=== PATIENT | female | born 1935 | race Asian ===

== ENCOUNTER 2022-06-18 14:57 | Inpatient (IN) | payer MEDICARE, BC, MEDICAID ==
[~2022-06-18] VITALS: Ht 152.4 cm; Wt 44.5 kg
--- NOTE | 2022-06-18 15:00 | NUR ---
RECEIVED PT 87 YRS FEMALE CAME BY [facility] AND TRANSFER FROM SNF FOR LOW O2 ANS ALOC OPEN EYES AND FALLOW COMMAND
--- NOTE | 2022-06-18 15:10 | NUR ---
SEEN BY DR. CAMARA
--- NOTE | 2022-06-18 16:07 | NUR ---
INSERTED ANGO CATHETER RT LEG G20 OK BY DR MCKNIGHT TO INSERTED in leg
--- NOTE | 2022-06-18 16:10 | NUR ---
pt head stick inserted ango catheter g 20 on rt for arm blood drow and sent to lab
[2022-06-18 16:53] LABS: BASOPHILS % (AUTO) 0.3 % (0.0-2.0); EOSINOPHILS % (AUTO) 0.2 % (0.0-6.0); HEMATOCRIT 30 % (33-45); HEMOGLOBIN 9.9 g/dL (11.5-14.8); LYMPHOCYTES # (AUTO) 0.5 K/uL (0.8-4.8); LYMPHOCYTES % (AUTO) 5.5 % (20.0-44.0); MEAN CORPUSCULAR HGB CONC 34 g/dl (31.0-36.0); MEAN CORPUSCULAR VOLUME 89 fL (82-100); MONOCYTES # (AUTO) 0.9 K/uL (0.1-1.30); MONOCYTES % (AUTO) 9.3 % (2.0-12.0); NEUTROPHILS # (AUTO) 7.8 K/uL (1.8-8.9); NEUTROPHILS % (AUTO) 84.7 % (43.0-81.0); PLATELET COUNT (AUTO) 222 K/uL (150-450); RED BLOOD CELL COUNT(AUTO) 3.31 MIL/uL (4.0-5.2); WHITE BLOOD COUNT (AUTO) 9.2 K/uL (4.3-11.0)
[2022-06-18 16:56] LABS: CALCIUM, SERUM 8.8 mg/dL (8.5-10.1); CARBON DIOXIDE 22 mmol/L (21-32); CHLORIDE 106 mmol/L (98-107); CREATININE 1.5 mg/dL (0.6-1.3); POTASSIUM 4.3 mmol/L (3.5-5.1); SODIUM SERUM 137 mmol/L (136-145); UREA NITROGEN, BLOOD 34 mg/dL (7-18)
[2022-06-18 17:01] LABS: ALANINE AMINOTRANSFERASE 14 U/L (12-78); ALKALINE PHOSPHATASE 128 U/L (46-116); ASPARTATE AMINOTRANSFERASE 21 U/L (15-37); BILIRUBIN,DIRECT 0.2 mg/dL (0.0-0.2); BILIRUBIN,TOTAL 0.4 mg/dL (0.2-1.0); TOTAL PROTEIN, SERUM 6.7 g/dL (6.4-8.2)
[2022-06-18 17:03] LABS: GLUCOSE 363 mg/dL (74-106)
[2022-06-18] MEDS ORDERED: MAGN400T26 PO (17:04)
[2022-06-18] MEDS ORDERED: MAGN400O6 PO (17:04)
[2022-06-18] MEDS ORDERED: LISI40TA13 PO (17:04)
[2022-06-18] MEDS ORDERED: IPRA3AMP23 IH (17:04)
[2022-06-18] MEDS ORDERED: AMLO-212 PO (17:04)
[2022-06-18] MEDS ORDERED: MEGE400O6 PO (17:04)
[2022-06-18] MEDS ORDERED: CHOL100043 PO (17:04)
[2022-06-18] MEDS ORDERED: MELA3TAB41 PO (17:04)
[2022-06-18] MEDS ORDERED: CYAN-51 PO (17:04)
[2022-06-18] MEDS ORDERED: DIPH30CR2 TP (17:04)
[2022-06-18] MEDS ORDERED: DONE10TA44 PO (17:04)
[2022-06-18] MEDS ORDERED: ACET-868 PO ×2 (17:04)
[2022-06-18] MEDS ORDERED: LORA10TA7 PO (17:04)
[2022-06-18] MEDS ORDERED: CRAN425C6 PO (17:04)
[2022-06-18] MEDS ORDERED: GUAI100S11 PO (17:04)
[2022-06-18] MEDS ORDERED: GEMF600T90 PO (17:04)
[2022-06-18] MEDS ORDERED: ASCO-352 PO (17:04)
[2022-06-18] MEDS ORDERED: MULT-447 PO (17:04)
[2022-06-18] MEDS ORDERED: ASPI-1420 PO (17:04)
[2022-06-18] MEDS ORDERED: AMIN30LI2 PO (17:04)
[2022-06-18] MEDS ORDERED: FERR300L PO (17:04)
--- NOTE | 2022-06-18 17:25 | NUR ---
Queenie BRYAN SENT TO LAB
--- NOTE | 2022-06-18 18:00 | NUR ---
I&O CATHETER DONE FR 15 UA SENT TO LAB
--- NOTE | 2022-06-18 18:45 | NUR ---
ROOM 327-1 AFTER SHIFT CHANGE
[2022-06-18 18:57] LABS: BILIRUBIN,URINE NEGATIVE (NEGATIVE); COLOR,URINE YELLOW (YELLOW); LEUKOCYTE ESTERASE ,URINE NEGATIVE (NEGATIVE); NITRITE, URINE NEGATIVE (NEGATIVE); PROTEIN,URINE 3+ mg/dl (NEGATIVE); UGLUCOSE 2+ mg/dL (NEGATIVE); UROBILINOGEN,URINE 0.2 EU/dL (0.2)
[2022-06-18 19:03] LABS: BACTERIA,URINE RARE /HPF (None Seen); COARSE GRANULAR CASTS,URINE Few /LPF (None Seen); RBC,URINE 21-50 /HPF (0-2); URINE AMORPHOUS URATE Many /HPF (None Seen); WBC,URINE 0-2 /HPF (0-3)
[2022-06-18] MEDS ORDERED: ACETAMINOPHEN 325 MG TABLET PO PRN ×2 (19:30)
[2022-06-18] MEDS ORDERED: MAG HYDROX/AL HYDROX/SIMETH 30 ML UDC PO PRN (19:30)
[2022-06-18] MEDS ORDERED: MAGNESIUM HYDROXIDE 30 ML UDC PO PRN ×2 (19:30)
[2022-06-18] MEDS ORDERED: GUAIFENESIN 300 MG/15 ML UDC PO PRN (19:30)
[2022-06-18] MEDS ORDERED: ONDANSETRON HCL/PF 4 MG/2 ML VIAL IVP PRN (19:30)
[2022-06-18] MEDS ORDERED: DEXTROSE 50%-WATER 50 ML DISP.SYRIN IV PRN (19:30)
[2022-06-18] MEDS ORDERED: Z GUARD REMEDY 4 OZ OINT TP PRN (19:30)
[2022-06-18] MEDS ORDERED: IV NS 0.9% 1,000 ML IV PRN (19:30)
--- NOTE | 2022-06-18 20:16 | NUR ---
REPORT GIVEN TO PATRICIA REHMAN
--- NOTE | 2022-06-18 21:00 | NUR ---
PT BROUGHT UP TO UNIT ON GURNEY WITH EMT AND RN AT BEDSIDE W/ ACLS PROTOCOL. NAD NOTED URING TRANSPORT.
--- NOTE | 2022-06-18 21:20 | NUR ---
ADMISSION 87 female Patient Alert to self only, nonverbal, moans. Skin check done with severe body rash, wheals/hives noted. Patient scratching skin. Skin photos placed in the chart. Patient breathing with inspiratory crackles, appears congested. Will inform MD. IV right foot inserted in ER. Fall/skin precaution maintained.
[2022-06-18 21:47] VITALS: BP 139/76
[2022-06-18] MEDS: BLOOD SUGAR DIAGNOSTIC 1 EACH STRIP VI SCH (23:13)
[2022-06-18] MEDS: diphenhydrAMINE HCL 50 MG/ML VIAL IV SCH (23:29)
[2022-06-18] MEDS ORDERED: methylPREDNISolone SOD SUCC 40 MG/ML VIAL IV ONE (23:30)
[2022-06-18] MEDS ORDERED: FAMOTIDINE/PF INJ 20 MG/2 ML VIAL IV SCH (23:30)
[2022-06-18] MEDS: *INSULIN REGULAR(HUMULIN R)HUM 100 UNIT/ML VIAL SQ PRN (23:46)
--- NOTE | 2022-06-18 23:50 | NUR ---
SEVERE RASH TREATMENT Given Benadyl IV and Solu-medrol IV x1. Bld glucose 144mg/dl, patient not eating and nonverbal at this time, confused. Insulin not given. Patient on IVF NS continuous.
[2022-06-18 23:59] VITALS: BP 106/94
[2022-06-19] MEDS ORDERED: ALBUTEROL FS 2.5 MG/0.5 ML VIAL.NEB NEB PRN
[2022-06-19] MEDS ORDERED: IPRATROPIUM NEB FS 0.5 MG/2.5 ML AMPUL.NEB NEB PRN
--- NOTE | 2022-06-19 00:05 | NUR ---
CONGESTION Oxygen sat high 90's on 2L NC, breathing with congestion, crackles heard. Notified Dr. Jimenez with new orders placed. ABG, Breathing Tx, Cefepime Pharmacy to dose, Scopolamine patch. Informed RT. Will cont to monitor patient.
--- NOTE | 2022-06-19 00:33 | NUR ---
ABG No new orders for ABG result per Dr. Jimenez. Per to give one time IV Lasix.
[2022-06-19] MEDS ORDERED: SCOPOLAMINE PATCH 1 MG/72HR TD ONE (00:44)
[2022-06-19] MEDS ORDERED: CEFEPIME 1 GM VIAL ONE (00:46)
[2022-06-19] MEDS: SCOPOLAMINE PATCH 1 MG/72HR TD SCH (00:57)
[2022-06-19] MEDS ORDERED: FUROSEMIDE 40 MG/4 ML VIAL IV ONE (01:00)
[2022-06-19] MEDS ORDERED: CEFEPIME 1 GM in IV D5W 50 ML IV ONE (01:00)
[2022-06-19 04:09] VITALS: BP 146/81
[2022-06-19] MEDS: BLOOD SUGAR DIAGNOSTIC 1 EACH STRIP VI SCH ×4 (06:28→21:57)
[2022-06-19] MEDS: INSULIN REGULAR, HUMAN 100 UNIT/ML 3 ML VIAL SQ PRN ×2 (06:28→17:33)
[2022-06-19 06:40] LABS: BASOPHILS % (AUTO) 0.1 % (0.0-2.0); HEMATOCRIT 27 % (33-45); HEMOGLOBIN 8.9 g/dL (11.5-14.8); LYMPHOCYTES # (AUTO) 0.3 K/uL (0.8-4.8); LYMPHOCYTES % (AUTO) 4.9 % (20.0-44.0); MEAN CORPUSCULAR HGB CONC 33 g/dl (31.0-36.0); MEAN CORPUSCULAR VOLUME 90 fL (82-100); MONOCYTES # (AUTO) 0.2 K/uL (0.1-1.30); MONOCYTES % (AUTO) 2.3 % (2.0-12.0); NEUTROPHILS # (AUTO) 6.2 K/uL (1.8-8.9); NEUTROPHILS % (AUTO) 92.7 % (43.0-81.0); PLATELET COUNT (AUTO) 173 K/uL (150-450); RED BLOOD CELL COUNT(AUTO) 2.99 MIL/uL (4.0-5.2); WHITE BLOOD COUNT (AUTO) 6.7 K/uL (4.3-11.0)
[2022-06-19] MEDS: diphenhydrAMINE HCL 50 MG/ML VIAL IV SCH ×3 (06:56→20:56)
[2022-06-19 07:06] LABS: CALCIUM, SERUM 8.7 mg/dL (8.5-10.1); CREATININE 1.3 mg/dL (0.6-1.3); MAGNESIUM 2.3 mg/dL (1.8-2.4); PHOSPHORUS 3.7 mg/dL (2.5-4.9); POTASSIUM 4.2 mmol/L (3.5-5.1)
--- NOTE | 2022-06-19 07:30 | NUR ---
MS RN OPENING NOTES RECEIVED PATIENT ON BED, RESTING AND A/O X1. ON O2 AT 2LPM VIA NASAL CANNULA TOLERATING WELL WITH 97% O2 SAT. IN OF SIGNS OF PAIN PER FLACC LEVEL OF PAIN. WITH IV ACCESS AT THE LEFT HAND G24 WITH NS AT 75ML/HR INFUSING WELL. DR. HAUSER IS AWARE ABOUT THE PENDING CODE STATUS OF THE PATIENT. SAFETY MEASURES IN PLACED. CALL LIGHT WITHIN REACH. BED ON LOWEST LOCKED POSITION, SIDE RAILS UP X2. WILL CONTINUE TO MONITOR.
--- NOTE | 2022-06-19 07:31 | NUR ---
WOUND CARE CONSULT: PT PRESENTS WITH INTACT DEEP TISSUE INJURY WITH SCARRING TO SACRUM, PRESENT ON ADMISSION. PT NOTED TO BE CACHECTIC. RECOMMENDATIONS MADE FOR SKIN PROTECTION. DISCUSSED WITH NURSING STAFF. PER NIGHT NURSE REPORT, PT PREVIOUSLY HAD HIVES/WHEALS ON SKIN AND WAS GIVEN ANTIHISTAMINE ORDERED BY PMD. CONTEH IN AGREEMENT WITH PLAN OF CARE. Addendum: 06/19/22 at 0734 by ARISTEO FU WNDNU LEFT HIP SCAR NOTED ALSO.
--- NOTE | 2022-06-19 07:42 | NUR ---
END OF SHIFT REPORT Patient in bed, nonverbal. Oxygen sat high 90's in 2L NC. Rash/wheals/hives clearing after solu-medrol IV, on IV Benadryl. Breathing, congestion, slowly improving after IV lasix given. On neb treatment q6h. Started on IV abx. Afebrile. IVF continuous. Had BM during the night, incontinent care done. Turned and repositioned q2h. Off load heels at all times. Coccyx redness, Consult wound care placed. Patient code status pending. Fall/skin precaution maintained. Care endorsed to ORI Chandler.
[2022-06-19] MEDS: ALBUTEROL FS 2.5 MG/0.5 ML VIAL.NEB NEB SCH ×3 (07:44→20:05)
[2022-06-19] MEDS: IPRATROPIUM NEB FS 0.5 MG/2.5 ML AMPUL.NEB NEB SCH ×3 (07:44→20:05)
[2022-06-19 08:00] VITALS: BP 90/54
--- NOTE | 2022-06-19 08:10 | NUR ---
RN NOTE CALLED DAUGHTER TWILA SALAZAR AND SHE CONFIRMED THAT PATIENT IS DNR/DNI.
[2022-06-19] MEDS: MEGESTROL ACETATE SUSP 400 MG/10 ML UDC PO SCH (09:00)
[2022-06-19] MEDS: GEMFIBROZIL 600 MG TABLET PO SCH ×2 (09:00→17:04)
[2022-06-19] MEDS: ASPIRIN EC 81 MG TABLET.DR PO SCH (09:00)
[2022-06-19] MEDS: FERROUS SULFATE UDC 300 MG/5 ML UDC PO SCH (09:00)
[2022-06-19] MEDS: DONEPEZIL 5 MG TABLET PO SCH ×2 (09:00→17:04)
[2022-06-19] MEDS: LISINOPRIL (20MG) 20 MG TABLET PO SCH (09:00)
[2022-06-19] MEDS: LORATADINE 10 MG TABLET PO SCH (09:00)
[2022-06-19] MEDS: PROSOURCE / PROSTAT (PYXIS) 30 ML UDC GT SCH ×3 (09:00→17:03)
[2022-06-19] MEDS: AMLODIPINE BESYLATE 5 MG TABLET PO SCH (09:00)
[2022-06-19] MEDS: methylPREDNISolone SOD SUCC 125 MG/2ML VIAL IV SCH ×2 (10:18→17:28)
[2022-06-19] MEDS: CEFEPIME 2 GM in IV D5W 100 ML IV SCH (13:43)
[2022-06-19] MEDS: GUAIFENESIN LA 600 MG TABLET.SA PO SCH ×2 (14:51→20:42)
[2022-06-19 16:00] VITALS: BP 91/50
[2022-06-19] MEDS: MUPIROCIN OINT 2% 22 GM TUBE NS SCH (17:03)
[2022-06-19] MEDS: GLUCERNA SHAKE 237 ML CAN PO SCH (17:34)
--- NOTE | 2022-06-19 18:52 | NUR ---
SACK LIFTER CLOSING NOTES PATIENT AAOX1. NO FACIAL GRIMMECING NOTED. NO S/S OF PAIN OR DISCOMFORT. ON 2LPM VIA NC. NO SOB. NO DYSPNEA NOTED. ABLE TO TOLERATE CURRENT DIET WITH NO ASPIRATION NOTED. SPOON FED BY NURSE. HOB KEPT ELEVATED. ON IV MEDS VIA LEFT HAND 24 G. NO INFILTRATION NOTED. PATENT AND INTACT. ABD SOFT NON DISTENED, + BOWEL SOUNDS IN ALL 4 QUADRANTS. NO BM NOTED IN THIS SHFIT. ON PUREWICK VOIDING TO 200ML OF CLEAR YELLOW URINE. PATIENT REQUIRES TOTAL WITH ADL. TURNED AND REPOSITIONED FOR COMFORT AND GOOD CIRCULATION. SIDE RAILS UP X 3, BED LOCKED IN LOWEST POSITION, BED ALARM ON. WILL ENDORSED TO MINNA REHMAN FOR CONTINUITY OF CARE
--- NOTE | 2022-06-19 19:48 | NUR ---
MS AIR TRAFFIC COORDINATOR INITIAL NOTES Received report from am nurse and seen patient in bed resting with eyes closed but arousable to touch. Not in any acute distress noted. she's with o2 at 2 liters via nasal canula . Breathing even and non-labored. Skin warm to touch. Heplock on her left hand gauge 24 , patent and intact. kept her in semi fowlers position with side rails x2 up and bed in low and lock in position . Bed alarm set for safety. kept her warm and comfortable at all times. will continue monitoring.
[2022-06-19 20:00] VITALS: BP 156/66
[2022-06-19] MEDS: FAMOTIDINE (20 MG) 20 MG TABLET PO SCH (20:42)
--- NOTE | 2022-06-19 21:01 | NUR ---
noc rn note Patient given scheduled 2100 Diphenhydramine 25mg. Primary, Mary aware.
[2022-06-19] MEDS: *INSULIN REGULAR(HUMULIN R)HUM 100 UNIT/ML VIAL SQ PRN (22:02)
--- NOTE | 2022-06-19 22:02 | NUR ---
MS CYCLE MANAGER NOTES BLOOD SUGAR CHECKED DONE 144, 2 UNITS OF INSULIN GIVEN SARAI SQ ORDERED, NO SIGNS OF HYPER /HYPO GLYCEMIA NOTED. SNACKS ALSO SERVED. WILL CONTINUE MONITORING.
[2022-06-20] MEDS: ALBUTEROL FS 2.5 MG/0.5 ML VIAL.NEB NEB SCH ×4 (01:34→21:02)
[2022-06-20] MEDS: IPRATROPIUM NEB FS 0.5 MG/2.5 ML AMPUL.NEB NEB SCH ×4 (01:34→21:02)
[2022-06-20] MEDS: methylPREDNISolone SOD SUCC 125 MG/2ML VIAL IV SCH ×3 (02:30→16:15)
[2022-06-20 04:00] VITALS: BP 117/62
[2022-06-20] MEDS: BLOOD SUGAR DIAGNOSTIC 1 EACH STRIP VI SCH ×4 (06:18→21:05)
[2022-06-20] MEDS: INSULIN REGULAR, HUMAN 100 UNIT/ML 3 ML VIAL SQ PRN ×3 (06:22→17:24)
--- NOTE | 2022-06-20 07:00 | NUR ---
MS HYDRAULIC BULL RIVETER OPERATOR CLOSING NOTES PT BACK TO SLEEP AFTER MORNING CARE DONE WITH THE HELPED OF NATIONAL PARK RANGER . SKIN CARE ALSO DONE. PT STABLE THROUGHOUT THE NIGHT. ALL DUE MEDS GIVEN AND ALL NEEDS MET. RESPIRATION EVEN AND NON-LABORED. REPOSITION PT FOR COMFORT. PT STILL WITH O2 AT 2 LITERS VIA NASAL CANULA. PUREWICK ASLO CHANGED. KEPT HER WARM AND COMFORTABLE AT ALL TIMES. BLOOD SUGAR CHECKED DOEN 187, 3 UNITS OF INSULIN GIVEN SARAI SQ ORDERED. NO SIGNS OF HYPER GLYCEMIA NOTED. BED IN LOW AND LOCK IN POSITION WITH SIDE RAILS X3 UP . BE ALARM SET FOR PT SAFETY. WILL ENDORSE TO AM NURSE FOR CONTINUITY OF CARE.
[2022-06-20 08:00] VITALS: BP 149/57
[2022-06-20] MEDS: GLUCERNA SHAKE 237 ML CAN PO SCH ×2 (08:10→17:05)
[2022-06-20] MEDS: PROSOURCE / PROSTAT (PYXIS) 30 ML UDC GT SCH ×3 (08:44→16:15)
[2022-06-20] MEDS: MUPIROCIN OINT 2% 22 GM TUBE NS SCH ×2 (08:44→16:16)
[2022-06-20] MEDS: GUAIFENESIN LA 600 MG TABLET.SA PO SCH ×2 (08:45→21:15)
[2022-06-20] MEDS: LISINOPRIL (20MG) 20 MG TABLET PO SCH (08:46)
[2022-06-20] MEDS: GEMFIBROZIL 600 MG TABLET PO SCH ×2 (08:46→16:16)
[2022-06-20] MEDS: ASPIRIN EC 81 MG TABLET.DR PO SCH (08:46)
[2022-06-20] MEDS: LORATADINE 10 MG TABLET PO SCH (08:46)
[2022-06-20] MEDS: AMLODIPINE BESYLATE 5 MG TABLET PO SCH (08:46)
[2022-06-20] MEDS: FAMOTIDINE (20 MG) 20 MG TABLET PO SCH ×2 (08:47→21:15)
[2022-06-20] MEDS: MEGESTROL ACETATE SUSP 400 MG/10 ML UDC PO SCH (08:47)
--- NOTE | 2022-06-20 08:50 | NUR ---
MS RN OPENING NOTES RECEIVED PATIENT AWAKE IN BED, RESTING AND A/O X1. ON O2 AT 2LPM VIA NASAL CANNULA TOLERATING WELL WITH 98% O2 SAT. NO SIGNS OF PAIN PER FLACC LEVEL. SALINE LOCK @ LEFT HAND G#24, INTACT AND INFUSING WELL. ABLE TO TOLERATE CURRENT DIET WITH NO ASPIRATION NOTED. HOB KEPT ELEVATED. SAFETY MEASURES IN PLACED. CALL LIGHT WITHIN REACH. BED ON LOWEST LOCKED POSITION, FALL/SKIN PRECAUTION MAINTAINED. SIDE RAILS UP X2. WILL CONTINUE TO MONITOR PATIENT.
[2022-06-20] MEDS: DONEPEZIL 5 MG TABLET PO SCH ×2 (08:52→16:15)
[2022-06-20] MEDS: FERROUS SULFATE UDC 300 MG/5 ML UDC PO SCH (08:56)
[2022-06-20] MEDS: CEFEPIME 2 GM in IV D5W 100 ML IV SCH (12:44)
[2022-06-20 16:00] VITALS: BP 108/65
--- NOTE | 2022-06-20 17:55 | NUR ---
MS RN NOTES B/S CHECKED THIS AFTERNOON AND IT WAS 480, RECHECKED AND IT WAS 495. REGULAR INSULIN 15 UNITS ADMINISTERED, RECHECKED AFTER 30 MINUTES BUT STILL HIGH 461. INFORMED DR. HAUSER AND AWAITING FOR HIS RESPONSE.
--- NOTE | 2022-06-20 18:06 | NUR ---
MS RN NOTES DR. HAUSER RESPOND AND ORDERED TO RECHECK B/S OR ACCU CHECK AFTER [address] HAUSER IF B/S STILL HIGH.
--- NOTE | 2022-06-20 18:44 | NUR ---
RN CLOSING NOTES RECEIVED PATIENT SLEEPING IN BED, RESTING AND A/O X1. ON O2 AT 2LPM VIA NASAL CANNULA TOLERATING WELL. NO SIGNS OF PAIN PER FLACC LEVEL. WITH SL AT LEFT HAND G24 PATENT AND INTACT. FALL/SKIN PRECAUTION MAINTAINED, REPOSITIONED THE PATIENT, SAFETY MEASURES IN PLACED. CALL LIGHT WITHIN REACH. BED ON LOWEST LOCKED POSITION, SIDE RAILS UP X2. WILL ENDORSE TO THE MANAGER PARKING NURSE FOR LATISHA.
--- NOTE | 2022-06-20 19:30 | NUR ---
MS RN OPENING NOTES RECEIVED PATIENT SLEEPING IN BED, RESTING. EASILY BE AWAKEN BY VERBAL STIMULI. A/O X 1. ON O2 AT 2LPM VIA NASAL CANNULA TOLERATING WELL. NO SIGNS OF PAIN PER FLACC LEVEL. WITH SL AT LEFT HAND G24, FLUSHING WELL. WILL MAINTAIN FALL/SKIN PRECAUTION. WILL MAINTAIN SAFETY MEASURES WITH BED ON LOWEST LOCKED POSITION, SIDE RAILS UP X2. CALL LIGHT WITHIN EASY REACH. WILL CONTINUE TO MONITOR THE PATIENT AND WILL CARRY OUT ACTIVE MD ORDERS.
[2022-06-20 20:00] VITALS: BP 128/73
[2022-06-20] MEDS: *INSULIN REGULAR(HUMULIN R)HUM 100 UNIT/ML VIAL SQ PRN (21:01)
--- NOTE | 2022-06-20 22:10 | NUR ---
RN NOTES- ACCUCHECK PATIENT'S BS LEVEL IS 127 TAKEN AFTER 30 MINS. WILL CONTINUE TO MONITOR THE PATIENT.
--- NOTE | 2022-06-20 22:40 | NUR ---
ORI RUELAS-CORY PER DR. HAUSER PATIENT'S BS LEVEL IS 206. R-INSULIN COVERAGE PER SLIDING SCALE IS 4 UNITS SQ. WILL MONITOR THE PATIENT. Addendum: 06/21/22 at 0333 by GERSON ENAMORADO RN CORRECT TIME IS 2039
[2022-06-21] MEDS: methylPREDNISolone SOD SUCC 125 MG/2ML VIAL IV SCH ×3 (01:09→16:48)
--- NOTE | 2022-06-21 01:40 | NUR ---
RN NOTES- IV ACCESS DISLODGED IV ACCESS ON LEFT HAND #24G DISLODGED, CHANGED TO LAC #22G, INTACT, PATENT, AND FLUSHING WELL. WILL CONTINUE TO MONITOR THE PATIENT.
[2022-06-21] MEDS: IPRATROPIUM NEB FS 0.5 MG/2.5 ML AMPUL.NEB NEB SCH ×4 (02:12→19:55)
[2022-06-21] MEDS: ALBUTEROL FS 2.5 MG/0.5 ML VIAL.NEB NEB SCH ×4 (02:12→19:55)
[2022-06-21 06:58] LABS: BASOPHILS % (AUTO) 0.1 % (0.0-2.0); HEMATOCRIT 28 % (33-45); LYMPHOCYTES # (AUTO) 0.4 K/uL (0.8-4.8); LYMPHOCYTES % (AUTO) 4.4 % (20.0-44.0); MEAN CORPUSCULAR HGB CONC 32 g/dl (31.0-36.0); MEAN CORPUSCULAR VOLUME 92 fL (82-100); MONOCYTES # (AUTO) 0.2 K/uL (0.1-1.30); MONOCYTES % (AUTO) 2.8 % (2.0-12.0); NEUTROPHILS # (AUTO) 8.1 K/uL (1.8-8.9); NEUTROPHILS % (AUTO) 92.7 % (43.0-81.0); PLATELET COUNT (AUTO) 215 K/uL (150-450); RED BLOOD CELL COUNT(AUTO) 3.05 MIL/uL (4.0-5.2); WHITE BLOOD COUNT (AUTO) 8.7 K/uL (4.3-11.0)
--- NOTE | 2022-06-21 07:06 | NUR ---
MS RN CLOSING NOTES PATIENT SLEEPING IN BED, RESTING. EASILY BE AWAKEN BY VERBAL STIMULI. A/O X 1. ON O2 AT 2LPM VIA NASAL CANNULA TOLERATING WELL. NO SIGNS OF PAIN PER FLACC LEVEL. WITH SL AT LEFT HAND G24, FLUSHING WELL. FALL/SKIN PRECAUTION MAINTAINED. SAFETY MEASURES MAINATINED WITH BED ON LOWEST LOCKED POSITION, SIDE RAILS UP X2. CALL LIGHT WITHIN EASY REACH. WILL ENDORSE TO THE NEXT SHIFT.
[2022-06-21 07:28] LABS: CALCIUM, SERUM 9.2 mg/dL (8.5-10.1); CARBON DIOXIDE 21 mmol/L (21-32); CHLORIDE 113 mmol/L (98-107); CREATININE 1.8 mg/dL (0.6-1.3); GLUCOSE 209 mg/dL (74-106); SODIUM SERUM 145 mmol/L (136-145); UREA NITROGEN, BLOOD 71 mg/dL (7-18)
--- NOTE | 2022-06-21 08:19 | NUR ---
RN OPENING NOTE RECEIVED PATIENT IN BED AO x 1 CONFUSED, ABLE TO RESPONDS PHYSICAL STIMULI. RESPIRATORY EVEN AND UNLABORED IN OXYGEN AT 2 Ls VIA NC. IN NO ACUTE RESPIRATORY DISTRESS OBSERVED. SKIN IS WARM TO TOUCH, KEEP CLEAN/DRY. KEPT ELEVATED HOB FOR ASPIRATION PRECAUTION/ENSURE AIRWAY, ALSO LOWEST BED POSITIONED. BED ALARM IS ON AT ALL THE TIME FOR SAFETY. CALL LIGHT WITHIN REACH, WILL CONTINUE TO MONITOR.
[2022-06-21 08:33] VITALS: BP 148/75
[2022-06-21] MEDS: FERROUS SULFATE UDC 300 MG/5 ML UDC PO SCH (08:33)
[2022-06-21] MEDS: PROSOURCE / PROSTAT (PYXIS) 30 ML UDC GT SCH ×3 (08:33→16:48)
[2022-06-21] MEDS: GEMFIBROZIL 600 MG TABLET PO SCH ×2 (08:33→16:48)
[2022-06-21] MEDS: ASPIRIN EC 81 MG TABLET.DR PO SCH (08:34)
[2022-06-21] MEDS: LISINOPRIL (20MG) 20 MG TABLET PO SCH (08:34)
[2022-06-21] MEDS: FAMOTIDINE (20 MG) 20 MG TABLET PO SCH ×2 (08:34→21:03)
[2022-06-21] MEDS: DONEPEZIL 5 MG TABLET PO SCH ×2 (08:34→16:48)
[2022-06-21] MEDS: MEGESTROL ACETATE SUSP 400 MG/10 ML UDC PO SCH (08:34)
[2022-06-21] MEDS: GUAIFENESIN LA 600 MG TABLET.SA PO SCH ×2 (08:34→21:03)
[2022-06-21] MEDS: GLUCERNA SHAKE 237 ML CAN PO SCH ×2 (08:35→16:49)
[2022-06-21] MEDS: LORATADINE 10 MG TABLET PO SCH (08:35)
[2022-06-21] MEDS: BLOOD SUGAR DIAGNOSTIC 1 EACH STRIP VI SCH ×4 (08:35→21:37)
[2022-06-21] MEDS: AMLODIPINE BESYLATE 5 MG TABLET PO SCH (08:35)
[2022-06-21] MEDS: MUPIROCIN OINT 2% 22 GM TUBE NS SCH ×2 (08:38→16:53)
[2022-06-21] MEDS: IV 1/2NS 1000 ML 1,000 ML IV SCH ×2 (08:38→21:23)
[2022-06-21] MEDS: INSULIN REGULAR, HUMAN 100 UNIT/ML 3 ML VIAL SQ PRN ×4 (08:42→21:36)
[2022-06-21] MEDS: CEFEPIME 2 GM in IV D5W 100 ML IV SCH (12:08)
[2022-06-21 16:09] VITALS: BP 115/69
--- NOTE | 2022-06-21 18:42 | NUR ---
RN CLOSING NOTE PATIENT RESTING IN BED. IN NO ACUTE DISTRESS OBSERVED. RESPIRATORY EVEN AND UNLABORED ON OXYGEN AT 2Ls VIA NC, NO SOB OR DESATURATION NOTED. SKIN IS WARM TO TOUCH KEEP CLEAN/DRY. KEPT ELEVATED HOB FOR ENSURE AIRWAY/ASPIRATION PRECAUTION, AND LOWEST BED POSITION. BED ALARM IS ON AT ALL THE TIME FOR SAFETY. CALL LIGHT WITHIN REACH, WILL ENDORSE SECONDARY SCHOOL TEACHER.
--- NOTE | 2022-06-21 19:29 | NUR ---
RN OPENING NOTES; RECEIVED PT IN BED AAOX1 CONFUSED,ON 2L O2 VIA NC ORIN WELL SAT 99%,NO SOB/DISTRESS NOTED,NO SIGN OF PAIN/DISCOMFORT AT THIS TIME,IV ACCESS ON R WRIST 24G INTACT AND PATENT,SAFETY MEASURE IN PLACE,CALL LIGHT WITHIN REACH,WILL CONTINUE TO MONITOR.
[2022-06-21 20:00] VITALS: BP 118/67
[2022-06-21] MEDS: SCOPOLAMINE PATCH 1 MG/72HR TD SCH (23:27)
[2022-06-22] MEDS: methylPREDNISolone SOD SUCC 125 MG/2ML VIAL IV SCH ×3 (00:11→16:20)
[2022-06-22] MEDS: IPRATROPIUM NEB FS 0.5 MG/2.5 ML AMPUL.NEB NEB SCH ×4 (01:36→20:35)
[2022-06-22] MEDS: ALBUTEROL FS 2.5 MG/0.5 ML VIAL.NEB NEB SCH ×4 (01:36→20:36)
--- NOTE | 2022-06-22 06:11 | NUR ---
RN CLOSING NOTES; PT IN BED AAOX1 CONFUSED,[place] SPEAKING WITH LITTLE YAKUT,ON 2L O2 VIA NC ORIN WELL SAT 96%,NO SOB/DISTRESS NOTED,NO SIGN OF PAIN/DISCOMFORT DURING SHIFT,DUE MEDS GIVEN ORDER,ALL NEEDS ATTENDED,,IV ACCESS ON R WRIST 24G WITH NS 75ML/HR INFUSING WELL,PUREWICK OUTPUT 800ML,SAFETY MEASURE IN PLACE,CALL LIGHT WITHIN REACH,WILL ENDORSED TO NEXT SHIFT.
[2022-06-22] MEDS: BLOOD SUGAR DIAGNOSTIC 1 EACH STRIP VI SCH ×4 (06:35→22:07)
[2022-06-22] MEDS: INSULIN REGULAR, HUMAN 100 UNIT/ML 3 ML VIAL SQ PRN ×4 (06:35→22:06)
[2022-06-22 07:00] VITALS: BP 151/90
[2022-06-22 07:16] LABS: CALCIUM, SERUM 9.2 mg/dL (8.5-10.1); CARBON DIOXIDE 21 mmol/L (21-32); CHLORIDE 116 mmol/L (98-107); CREATININE 1.6 mg/dL (0.6-1.3); GLUCOSE 190 mg/dL (74-106); POTASSIUM 4.1 mmol/L (3.5-5.1); SODIUM SERUM 148 mmol/L (136-145); UREA NITROGEN, BLOOD 73 mg/dL (7-18)
[2022-06-22 07:21] LABS: BASOPHILS % (AUTO) 0.2 % (0.0-2.0); HEMATOCRIT 30 % (33-45); HEMOGLOBIN 9.8 g/dL (11.5-14.8); LYMPHOCYTES # (AUTO) 0.4 K/uL (0.8-4.8); LYMPHOCYTES % (AUTO) 3.8 % (20.0-44.0); MEAN CORPUSCULAR HGB CONC 33 g/dl (31.0-36.0); MEAN CORPUSCULAR VOLUME 91 fL (82-100); MONOCYTES # (AUTO) 0.3 K/uL (0.1-1.30); MONOCYTES % (AUTO) 2.6 % (2.0-12.0); NEUTROPHILS # (AUTO) 9.1 K/uL (1.8-8.9); NEUTROPHILS % (AUTO) 93.4 % (43.0-81.0); PLATELET COUNT (AUTO) 257 K/uL (150-450); RED BLOOD CELL COUNT(AUTO) 3.31 MIL/uL (4.0-5.2); WHITE BLOOD COUNT (AUTO) 9.8 K/uL (4.3-11.0)
--- NOTE | 2022-06-22 07:44 | NUR ---
MS RN OPENING NOTES RECEIVED PATIENT AWAKE IN BED, RESTING AND A/O X1. ON O2 AT 2LPM VIA NASAL CANNULA TOLERATING WELL WITH 98% O2 SAT. NO SIGNS OF PAIN PER FLACC LEVEL. SALINE LOCK @ LEFT HAND G#24, INTACT AND INFUSING WELL. PATIENT IS USING PUREWICK, ABLE TO TOLERATE CURRENT DIET WITH NO ASPIRATION NOTED. HOB KEPT ELEVATED. SAFETY MEASURES IN PLACED. CALL LIGHT WITHIN REACH. BED ON LOWEST LOCKED POSITION, FALL/SKIN PRECAUTION MAINTAINED. SIDE RAILS UP X2. WILL CONTINUE TO MONITOR PATIENT.
[2022-06-22] MEDS: GLUCERNA SHAKE 237 ML CAN PO SCH ×2 (08:06→17:08)
[2022-06-22] MEDS: FAMOTIDINE (20 MG) 20 MG TABLET PO SCH ×2 (08:49→21:18)
[2022-06-22] MEDS: LORATADINE 10 MG TABLET PO SCH (08:50)
[2022-06-22] MEDS: FERROUS SULFATE UDC 300 MG/5 ML UDC PO SCH (08:51)
[2022-06-22] MEDS: MEGESTROL ACETATE SUSP 400 MG/10 ML UDC PO SCH (08:51)
[2022-06-22] MEDS: LISINOPRIL (20MG) 20 MG TABLET PO SCH (08:52)
[2022-06-22] MEDS: ASPIRIN EC 81 MG TABLET.DR PO SCH (08:53)
[2022-06-22] MEDS: DONEPEZIL 5 MG TABLET PO SCH ×2 (08:53→16:20)
[2022-06-22] MEDS: AMLODIPINE BESYLATE 5 MG TABLET PO SCH (08:53)
[2022-06-22] MEDS: GEMFIBROZIL 600 MG TABLET PO SCH ×2 (08:54→16:20)
[2022-06-22] MEDS: GUAIFENESIN LA 600 MG TABLET.SA PO SCH ×2 (08:54→21:18)
[2022-06-22] MEDS: PROSOURCE / PROSTAT (PYXIS) 30 ML UDC GT SCH ×3 (08:55→16:19)
[2022-06-22] MEDS: MUPIROCIN OINT 2% 22 GM TUBE NS SCH ×2 (08:57→16:20)
[2022-06-22 09:42] LABS: BAND % (MANUAL) 2 % (0.0-5.0); LYMPHOCYTES % (MANUAL) 6 % (16-48); METAMYELOCYTES % 1 % (0-0); MONOCYTES % (MANUAL) 2 % (0-11.0); MYELOCYTES % 1 % (0-0); NEUTROPHILS % (MANUAL) 88 (42-76)
[2022-06-22] MEDS: CEFEPIME 2 GM in IV D5W 100 ML IV SCH (12:09)
[2022-06-22] MEDS: IV 1/2NS 1000 ML 1,000 ML IV PRN (12:10)
--- NOTE | 2022-06-22 15:23 | NUR ---
RN NOTES PATIENT IV SITE ON R WRIST NOTED LEAKING AND WAS REMOVED. NEW IV ACCESS INSERTED AT RFA G#24. IVF RESUMED.
[2022-06-22 16:27] VITALS: BP 135/65
--- NOTE | 2022-06-22 18:39 | NUR ---
MS CLOSING RN NOTES PATIENT AWAKE IN BED, RESTING AND A/O X1. ON ROOM AIR. NO SIGNS OF , NO SIGNS OF PAIN PER FLACC LEVEL. IV ACCESS AT RIGHT FOREARM G#24, INTACT AND INFUSING WELL. ABLE TO TOLERATE CURRENT DIET WITH NO ASPIRATION NOTED. HOB KEPT ELEVATED. SAFETY MEASURES IN PLACED. CALL LIGHT WITHIN REACH. BED ON LOWEST LOCKED POSITION, FALL/SKIN PRECAUTION MAINTAINED. SIDE RAILS UP X2. ALL NEEDS ATTENDED. WILL ENDORSE FOR LATISHA.
--- NOTE | 2022-06-22 19:25 | NUR ---
RN OPENING NOTES; RECEIVED PT IN BED AAOX1 CONFUSED,ON 2L O2 VIA NC ORIN WELL SAT 97%,NO SOB/DISTRESS NOTED,NO SIGN OF PAIN/DISCOMFORT AT THIS TIME,IV ACCESS ON RFA 24G WITH 1/2 NS 75ML/HR,,SAFETY MEASURE IN PLACE,CALL LIGHT WITHIN REACH,WILL CONTINUE TO MONITOR.
[2022-06-22 20:00] VITALS: BP 149/65
[2022-06-23] MEDS: methylPREDNISolone SOD SUCC 125 MG/2ML VIAL IV SCH ×2 (01:07→09:18)
[2022-06-23] MEDS: ALBUTEROL FS 2.5 MG/0.5 ML VIAL.NEB NEB SCH ×4 (01:30→19:57)
[2022-06-23] MEDS: IPRATROPIUM NEB FS 0.5 MG/2.5 ML AMPUL.NEB NEB SCH ×4 (01:30→19:57)
[2022-06-23] MEDS: IV 1/2NS 1000 ML 1,000 ML IV PRN ×2 (04:25→19:31)
--- NOTE | 2022-06-23 06:15 | NUR ---
RN CLOSING NOTES; PT IN BED AAOX1 CONFUSED,[place] SPEAKING WITH LITTLE LATVIAN,ON 2L O2 VIA NC ORIN WELL SAT 95%,NO SOB/DISTRESS NOTED,NO SIGN OF PAIN/DISCOMFORT DURING SHIFT,DUE MEDS GIVEN ORDER,ALL NEEDS ATTENDED,,IV ACCESS ON RFA 24G WITH 1/2 NS 75ML/HR INFUSING WELL,PUREWICK OUTPUT 900ML,SAFETY MEASURE IN PLACE,CALL LIGHT WITHIN REACH,WILL ENDORSED TO NEXT SHIFT.
[2022-06-23] MEDS: INSULIN REGULAR, HUMAN 100 UNIT/ML 3 ML VIAL SQ PRN ×3 (06:38→17:11)
[2022-06-23] MEDS: BLOOD SUGAR DIAGNOSTIC 1 EACH STRIP VI SCH ×4 (06:38→22:55)
[2022-06-23] MEDS: GUAIFENESIN LA 600 MG TABLET.SA PO SCH ×2 (09:15→21:58)
[2022-06-23] MEDS: FERROUS SULFATE UDC 300 MG/5 ML UDC PO SCH (09:15)
[2022-06-23] MEDS: AMLODIPINE BESYLATE 5 MG TABLET PO SCH (09:16)
[2022-06-23] MEDS: FAMOTIDINE (20 MG) 20 MG TABLET PO SCH ×2 (09:17→21:58)
[2022-06-23] MEDS: MEGESTROL ACETATE SUSP 400 MG/10 ML UDC PO SCH (09:17)
[2022-06-23] MEDS: LISINOPRIL (20MG) 20 MG TABLET PO SCH (09:18)
[2022-06-23] MEDS: DONEPEZIL 5 MG TABLET PO SCH ×2 (09:19→17:08)
[2022-06-23] MEDS: GEMFIBROZIL 600 MG TABLET PO SCH ×2 (09:19→17:14)
[2022-06-23] MEDS: ASPIRIN EC 81 MG TABLET.DR PO SCH (09:19)
[2022-06-23] MEDS: LORATADINE 10 MG TABLET PO SCH (09:20)
[2022-06-23] MEDS: PROSOURCE / PROSTAT (PYXIS) 30 ML UDC GT SCH ×3 (09:22→17:12)
[2022-06-23] MEDS: GLUCERNA SHAKE 237 ML CAN PO SCH ×2 (09:24→17:13)
[2022-06-23] MEDS: MUPIROCIN OINT 2% 22 GM TUBE NS SCH ×2 (09:25→17:13)
[2022-06-23 11:21] VITALS: BP 121/68
[2022-06-23] MEDS: CEFEPIME 2 GM in IV D5W 100 ML IV SCH (12:27)
[2022-06-23 16:00] VITALS: BP 152/80
[2022-06-23] MEDS: predniSONE 20 MG TABLET PO SCH (17:08)
--- NOTE | 2022-06-23 19:40 | NUR ---
MS RN OPENING NOTE RECEIVED PATIENT AWAKE, RESTING IN BED. PT A/O X1. ON O2 AT 2 LPM VIA NASAL CANNULA, TOLERATING WELL. NO S/S OF PAIN OR DISCOMFORT NOTED AT THIS TIME. IV ACCESS TO RIGHT FA G#24, INTACT AND PATENT, WITH 1/2 NS INFUSING AT 75 ML/HR. PATIENT IS USING PUREWICK. HOB KEPT ELEVATED. SAFETY MEASURES IN PLACED. CALL LIGHT WITHIN REACH. BED ON LOWEST LOCKED POSITION, SIDE RAILS UP X2. WILL CONTINUE TO MONITOR PATIENT.
--- NOTE | 2022-06-23 19:55 | NUR ---
MS RN NOTES: RECEIVED PATIENT AWAKE IN BED, RESTING AND A/O X1. ON RA WITH NO S/S OF SOB, NO SIGNS OF PAIN PER FLACC LEVEL. IV ACCESS AT R FA# 24 WITH 1/2NS @ 75ML/HR. PATIENT IS USING PUREWICK, DRAINING CLEAR, YELLOW URINE. HOB KEPT ELEVATED. SAFETY MEASURES IN PLACE CALL LIGHT WITHIN REACH, WILL CONT WITH PLAN OF CARE DURING SHIFT.
--- NOTE | 2022-06-23 19:58 | NUR ---
MS RN CLOSING NOTES: PATIENT IS ASLEEP, EASILY ROUSED; A/O X1. ON RA WITH NO S/S OF SOB, NO SIGNS OF PAIN PER FLACC LEVEL. IV ACCESS AT R FA# 24 WITH 1/2NS @ 75ML/HR. PATIENT IS USING PUREWICK, DRAINING CLEAR, YELLOW URINE, TOTAL OUTPUT = 300CC. KEPT PT CLEAN, DRY AND COMFORTABLE, WOUND CARE DONE. HOB KEPT ELEVATED. SAFETY MEASURES IN PLACE, CALL LIGHT WITHIN REACH, ENDORSED TO PM SHIFT.
[2022-06-23 20:00] VITALS: BP 137/84
[2022-06-23] MEDS: *INSULIN REGULAR(HUMULIN R)HUM 100 UNIT/ML VIAL SQ PRN (22:59)
[2022-06-24] MEDS: IPRATROPIUM NEB FS 0.5 MG/2.5 ML AMPUL.NEB NEB SCH ×3 (02:19→13:48)
[2022-06-24] MEDS: ALBUTEROL FS 2.5 MG/0.5 ML VIAL.NEB NEB SCH ×3 (02:19→13:48)
--- NOTE | 2022-06-24 06:40 | NUR ---
MS RN CLOSING NOTE LEFT PATIENT AWAKE, RESTING IN BED. PT A/O X1. ON O2 AT 2 LPM VIA NASAL CANNULA, TOLERATING WELL. NO S/S OF PAIN OR DISCOMFORT NOTED AT THIS TIME. IV ACCESS TO RIGHT FA G#24, INTACT AND PATENT, WITH 1/2 NS INFUSING AT 75 ML/HR. PATIENT IS USING PUREWICK. HOB KEPT ELEVATED. SAFETY MEASURES IN PLACED. CALL LIGHT WITHIN REACH. BED ON LOWEST LOCKED POSITION, SIDE RAILS UP X2. WILL ENDORSE PATIENT TO AM SHIFT NURSE FOR LATISHA.
[2022-06-24 06:48] LABS: BASOPHILS % (AUTO) 0.1 % (0.0-2.0); HEMATOCRIT 29 % (33-45); HEMOGLOBIN 9.3 g/dL (11.5-14.8); LYMPHOCYTES # (AUTO) 0.7 K/uL (0.8-4.8); LYMPHOCYTES % (AUTO) 5.7 % (20.0-44.0); MEAN CORPUSCULAR HGB CONC 32 g/dl (31.0-36.0); MEAN CORPUSCULAR VOLUME 92 fL (82-100); MONOCYTES # (AUTO) 0.8 K/uL (0.1-1.30); MONOCYTES % (AUTO) 6.7 % (2.0-12.0); NEUTROPHILS # (AUTO) 10.4 K/uL (1.8-8.9); NEUTROPHILS % (AUTO) 87.5 % (43.0-81.0); PLATELET COUNT (AUTO) 256 K/uL (150-450); RED BLOOD CELL COUNT(AUTO) 3.16 MIL/uL (4.0-5.2); WHITE BLOOD COUNT (AUTO) 11.8 K/uL (4.3-11.0)
[2022-06-24 07:00] VITALS: BP 140/67
[2022-06-24] MEDS: INSULIN REGULAR, HUMAN 100 UNIT/ML 3 ML VIAL SQ PRN ×2 (07:10→11:37)
[2022-06-24 07:14] LABS: CALCIUM, SERUM 8.5 mg/dL (8.5-10.1); CREATININE 1.2 mg/dL (0.6-1.3); PHOSPHORUS 3.6 mg/dL (2.5-4.9); POTASSIUM 4.2 mmol/L (3.5-5.1)
[2022-06-24 07:40] LABS: MAGNESIUM 2.6 mg/dL (1.8-2.4)
--- NOTE | 2022-06-24 08:00 | NUR ---
MS RN OPENING NOTE RECEIVED PATIENT ASLEEP, EASILY ROUSED, RESTING IN BED. PT A/O X1. ON RA WITH NO S/S OF SOB OR ACUTE DISTRESS NOTED. NO S/S OF PAIN OR DISCOMFORT NOTED AT THIS TIME. VIA FLACC. IV ACCESS TO RIGHT FA G#24, INTACT AND PATENT, WITH 1/2 NS INFUSING AT 75 ML/HR. PATIENT IS USING PUREWICK. HOB KEPT ELEVATED. SAFETY MEASURES IN PLACE. CALL LIGHT WITHIN REACH; BED ON LOWEST LOCKED POSITION; SIDE RAILS UP X2M WILL CONT WITH PLAN OF CARE DURING SHIFT.
[2022-06-24] MEDS: BLOOD SUGAR DIAGNOSTIC 1 EACH STRIP VI SCH ×2 (08:21→11:52)
[2022-06-24] MEDS: MEGESTROL ACETATE SUSP 400 MG/10 ML UDC PO SCH (08:50)
[2022-06-24] MEDS: DONEPEZIL 5 MG TABLET PO SCH (08:50)
[2022-06-24] MEDS: FERROUS SULFATE UDC 300 MG/5 ML UDC PO SCH (08:50)
[2022-06-24] MEDS: ASPIRIN EC 81 MG TABLET.DR PO SCH (08:50)
[2022-06-24 08:51] VITALS: BP 140/67
[2022-06-24] MEDS: predniSONE 20 MG TABLET PO SCH (08:51)
[2022-06-24] MEDS: AMLODIPINE BESYLATE 5 MG TABLET PO SCH (08:51)
[2022-06-24] MEDS: LISINOPRIL (20MG) 20 MG TABLET PO SCH (08:51)
[2022-06-24] MEDS: GEMFIBROZIL 600 MG TABLET PO SCH (08:51)
[2022-06-24] MEDS: GUAIFENESIN LA 600 MG TABLET.SA PO SCH (08:52)
[2022-06-24] MEDS: FAMOTIDINE (20 MG) 20 MG TABLET PO SCH (08:52)
[2022-06-24] MEDS: LORATADINE 10 MG TABLET PO SCH (08:52)
[2022-06-24] MEDS: MUPIROCIN OINT 2% 22 GM TUBE NS SCH (08:53)
[2022-06-24] MEDS: GLUCERNA SHAKE 237 ML CAN PO SCH (08:54)
[2022-06-24] MEDS: PROSOURCE / PROSTAT (PYXIS) 30 ML UDC GT SCH ×2 (08:54→12:01)
[2022-06-24] MEDS: IV 1/2NS 1000 ML 1,000 ML IV PRN (11:42)
[2022-06-24] MEDS: CEFEPIME 2 GM in IV D5W 100 ML IV SCH (12:01)
[2022-06-24] MEDS ORDERED: SCOP1PAT11 TD (12:58)
[2022-06-24] MEDS ORDERED: NUT.237L45 PO (12:58)
[2022-06-24] MEDS ORDERED: Prosource GT (12:58)
[2022-06-24] MEDS ORDERED: PRED20TA PO (12:58)
--- NOTE | 2022-06-24 15:35 | NUR ---
MS RN DC NOTES: PT IS CLEARED FOR DC. CALLED [facility], GAVE REPORT TO DWIGHT REHMAN. PT VITALS WNL, STABLE ON RA. IV ACCESS AND ID BAND REMOVED. BELONGINGS CHECKED WITH ANOTHER RN, DC INSTRUCTIONS DISCUSSED WITH ANOTHER RN, ALL DOCUMENTS SIGNED BY 2 PROGRAM MANAGEMENT ANALYST PT IS UNABLE TO SIGN. SKIN ISSUES PHOTOGRAPHED AND PLACED IN CHART. REPORT, PT'S BELONGINGS AND DC PACKET GIVEN TO EMT, UNIT # [id number]. PT LEFT UNIT VIA [facility] TRANSP[facility].
[2022-06-24 15:38] LABS: LYMPHOCYTES % (MANUAL) 8 % (16-48); METAMYELOCYTES % 3 % (0-0); MONOCYTES % (MANUAL) 7 % (0-11.0); MYELOCYTES % 2 % (0-0); NEUTROPHILS % (MANUAL) 80 (42-76)
[2022-06-25] MEDS ORDERED: predniSONE 20 MG TABLET PO SCH (09:00)
== END 2022-06-24 16:25 | DRG 189 ==
LOC: ER 15:00 → TELE 19:46 → MED 06-19
PROVIDERS: ADMIT Internal Medicine; ATTEND Student in an Organized Health Care Education/Training Program
DX: J96.01 Acute respiratory failure with hypoxia (principal); N17.0 Acute kidney failure with tubular necrosis; J45.901 Unspecified asthma with (acute) exacerbation; J21.9 Acute bronchiolitis, unspecified; E87.0 Hyperosmolality and hypernatremia; Z20.822 Contact with and (suspected) exposure to COVID-19; F03.90 Unspecified dementia, unspecified severity, without behavioral disturbance, psychotic disturbance, mood disturbance, and anxiety; E78.5 Hyperlipidemia, unspecified; I70.0 Atherosclerosis of aorta; Z98.61 Coronary angioplasty status; Z95.3 Presence of xenogenic heart valve; Z95.1 Presence of aortocoronary bypass graft; Z95.0 Presence of cardiac pacemaker; Z86.73 Personal history of transient ischemic attack (TIA), and cerebral infarction without residual deficits; N28.1 Cyst of kidney, acquired; R32 Unspecified urinary incontinence; M62.50 Muscle wasting and atrophy, not elsewhere classified, unspecified site; H54.7 Unspecified visual loss; D63.8 Anemia in other chronic diseases classified elsewhere; E86.0 Dehydration; I25.10 Atherosclerotic heart disease of native coronary artery without angina pectoris; E88.09 Other disorders of plasma-protein metabolism, not elsewhere classified; Z79.51 Long term (current) use of inhaled steroids; Z79.82 Long term (current) use of aspirin; Z79.899 Other long term (current) drug therapy; Z86.16 Personal history of COVID-19; F09 Unspecified mental disorder due to known physiological condition; Z87.440 Personal history of urinary (tract) infections; L89.156 Pressure-induced deep tissue damage of sacral region; I12.9 Hypertensive chronic kidney disease with stage 1 through stage 4 chronic kidney disease, or unspecified chronic kidney disease; N18.9 Chronic kidney disease, unspecified; E11.22 Type 2 diabetes mellitus with diabetic chronic kidney disease
CPT/HCPCS: 36415; 36600; 70210-TC; 70450-TC; 71045-TC; 80048-TC; 80076-TC; 81001; 82803-TC; 82962-TC; 83605-TC; 83735-TC; 84100-TC; 84484-TC; 85025-TC; 85730-TC; 87040-TC; 87081-TC; 87086-TC; 93307-TC; 94799-TC; A4223; C9803; G0378; J0692; J1200; J1815; J1940; J2920; J2930; J3490; J7030; J7060